=== PATIENT | female | born 1960 | race Caucasian/White ===

== ENCOUNTER → 2021-01-29 | Emergency (ER) | payer OTHER ==
[~2021-01-29] VITALS: Ht 162.6 cm; Wt 71.7 kg
== END | disposition home or self-care (01) ==
LOC: ER 17:03
DX: U07.1 COVID-19 (principal); R53.81 Other malaise

== ENCOUNTER 2021-02-08 11:46 | Emergency (ER) | payer OTHER ==
[~2021-02-08] VITALS: Ht 162.6 cm; Wt 73.5 kg
[2021-02-08] MEDS ORDERED: INTESTINEX680 M1 PO (17:32)
[2021-02-08] MEDS ORDERED: PEPCID AC20 MG PO (17:32)
[2021-02-08] MEDS ORDERED: LEVSIN/SL0.125 MG PO (17:32)
== END 2021-02-08 17:50 | disposition home or self-care (01) ==
LOC: ER 11:46
DX: R10.32 Left lower quadrant pain (principal); E86.0 Dehydration

== ENCOUNTER 2021-05-14 09:25 | Emergency (ER) | payer OTHER ==
[~2021-05-14] VITALS: Ht 152.4 cm; Wt 72.6 kg
[~2021-05-14 09:25] MED LIST: INTESTINEX680 M1 PO; LEVSIN/SL0.125 MG PO; PEPCID AC20 MG PO
[2021-05-14] MEDS ORDERED: MUCINEX DM ER1 EACH PO (12:59)
[2021-05-14] MEDS ORDERED: PREPARATION H R28 GM RECTAL (12:59)
[2021-06-05] MEDS ORDERED: ACETAMINOPHEN650 M2 (06:16)
== END 2021-05-14 13:11 | disposition home or self-care (01) ==
LOC: ER 09:25
DX: K64.9 Unspecified hemorrhoids (principal); J06.9 Acute upper respiratory infection, unspecified; Z03.818 Encounter for observation for suspected exposure to other biological agents ruled out

== ENCOUNTER 2021-05-28 08:00 | Outpatient (CLI) | payer OTHER ==
[~2021-05-28 08:00] MED LIST changes: +MUCINEX DM ER1 EACH PO; +PREPARATION H R28 GM RECTAL
[2021-06-05] MEDS ORDERED: ACETAMINOPHEN650 M2 (06:16)
== END 2021-05-28 08:30 | disposition home or self-care (01) ==
LOC: PPH VACUNA 08:00
DX: Z23 Encounter for immunization (principal)

== ENCOUNTER 2021-06-18 08:00 | Outpatient (CLI) | payer OTHER ==
[~2021-06-18 08:00] MED LIST changes: +ACETAMINOPHEN650 M2
== END 2021-06-18 08:30 | disposition home or self-care (01) ==
LOC: PPH VACUNA 08:00
PROVIDERS: ATTEND Emergency Medicine Pediatric Emergency Medicine
DX: Z23 Encounter for immunization (principal)

== ENCOUNTER 2021-08-07 11:02 | Emergency (ER) | payer OTHER ==
[~2021-08-07] VITALS: Ht 162.6 cm; Wt 74.4 kg
[2021-08-07] MEDS ORDERED: ZOCOR20 MG PO (11:14)
[2021-08-07] MEDS ORDERED: ZYRTEC10 MG PO (11:14)
[2021-08-07] MEDS ORDERED: CELEBREX100 MG PO (16:42)
[2021-08-07] MEDS ORDERED: LEVSIN/SL0.125 MG PO (16:42)
== END 2021-08-07 16:56 ==
LOC: ER 11:02
DX: R10.30 Lower abdominal pain, unspecified (principal)

== ENCOUNTER 2022-06-19 09:11 | Emergency (ER) | payer OTHER ==
[~2022-06-19] VITALS: Ht 162.6 cm; Wt 74.4 kg
[~2022-06-19 09:11] MED LIST changes: +CELEBREX100 MG PO; +ZOCOR20 MG PO; +ZYRTEC10 MG PO
== END 2022-06-19 13:32 | disposition home or self-care (01) ==
LOC: ER 09:11
DX: J03.90 Acute tonsillitis, unspecified (principal); Z88.8 Allergy status to other drugs, medicaments and biological substances

== ENCOUNTER 2022-08-28 11:35 | Emergency (ER) | payer OTHER ==
[~2022-08-28] VITALS: Ht 162.6 cm; Wt 73.5 kg
== END 2022-08-28 16:13 | disposition home or self-care (01) ==
LOC: ER 11:35
DX: R68.83 Chills (without fever) (principal)

== ENCOUNTER 2023-07-02 13:19 | Emergency (ER) | payer OTHER ==
[~2023-07-02] VITALS: Ht 152.4 cm; Wt 74.8 kg
[2023-07-02] MEDS ORDERED: [UNRECOGNIZED DRUG - OTHER] (14:34)
[2023-07-02 17:02] LABS: HEMATOCRIT 41.4 % (36.0-45.00); HEMOGLOBIN 14.2 g/dL (12.0-15.00); MEAN CELL VOLUME 95.3 fL (80.00-100.00); MEAN CORPUSCULAR HEMOGLOBIN 32.7 pg (27.00-32.0); MEAN CORPUSCULAR HGB CONC 34.4 g/dl (32.0-36.0); PLATELET COUNT 235 K/uL (150-450); RED BLOOD COUNT 4.35 M/uL (4.00-6.00); RED CELL DISTRIBUTION WIDTH 13.1 % (11.5-14.5)
[2023-07-02 17:26] LABS: PARTIAL THROMBOPLASTIN TIME 27.4 SECONDS (22.0-34.0)
[2023-07-02 17:33] LABS: BILIRUBIN TOTAL 0.2 mg/dL (0.3-1.2); CALCIUM 9.3 mg/dL (8.5-10.1); CREATININE SERUM 0.89 mg/dL (0.55-1.02); GFR 63.85; GLOBULINA 4.1 G/DL (2.4-3.5); POTASSIUM 3.43 mEq/L (3.5-5.1); TOTAL PROTEIN 8.1 gm/dL (6.4-8.2)
== END 2023-07-03 04:15 | disposition designated cancer center or children's hospital (05) ==
LOC: ER 13:19
PROVIDERS: General Practice
DX: T17.298A Other foreign object in pharynx causing other injury, initial encounter (principal); Y92.89 Other specified places as the place of occurrence of the external cause; Z20.822 Contact with and (suspected) exposure to COVID-19

== ENCOUNTER 2023-08-11 13:45 | Emergency (ER) | payer OTHER ==
[~2023-08-11] VITALS: Ht 162.6 cm; Wt 74.8 kg
[~2023-08-11 13:45] MED LIST changes: +[UNRECOGNIZED DRUG - OTHER]
[2023-08-11] MEDS ORDERED: LEVO-T25 MCG (14:18)
[2023-08-11] MEDS ORDERED: SIMVASTATIN5 MG PO (14:19)
[2023-08-11 15:33] LABS: HEMATOCRIT 43.6 % (36.0-45.00); HEMOGLOBIN 14.7 g/dL (12.0-15.00); MEAN CELL VOLUME 95.6 fL (80.00-100.00); MEAN CORPUSCULAR HEMOGLOBIN 32.2 pg (27.00-32.0); MEAN CORPUSCULAR HGB CONC 33.7 g/dl (32.0-36.0); PLATELET COUNT 217 K/uL (150-450); RED BLOOD COUNT 4.56 M/uL (4.00-6.00); RED CELL DISTRIBUTION WIDTH 13.3 % (11.5-14.5)
[2023-08-11 15:53] LABS: ALBUMIN 3.5 gm/dL (3.4-5.0); BILIRUBIN TOTAL 0.25 mg/dL (0.3-1.2); CALCIUM 8.9 mg/dL (8.5-10.1); CREATININE SERUM 0.95 mg/dL (0.55-1.02); GFR 59.22; GLOBULINA 4.5 G/DL (2.4-3.5); POTASSIUM 3.53 mEq/L (3.5-5.1)
[2023-08-11] MEDS ORDERED: OSEL75CA PO (16:33)
[2023-08-11] MEDS ORDERED: MUCINEX DM ER1 EACH PO (16:33)
[2023-08-11] MEDS ORDERED: ZYRTEC10 MG PO (16:33)
[2023-08-11] MEDS ORDERED: DEXAMETHASONE2 MG PO (16:35)
== END 2023-08-11 17:51 | disposition home or self-care (01) ==
LOC: ER 13:45
PROVIDERS: General Practice
DX: U07.1 COVID-19 (principal); J10.1 Influenza due to other identified influenza virus with other respiratory manifestations; Z20.822 Contact with and (suspected) exposure to COVID-19

== ENCOUNTER → 2025-06-26 09:06 | Outpatient (CLI) | payer OTHER ==
[~2025-06-26 09:06] MED LIST changes: +DEXAMETHASONE2 MG PO; +LEVO-T25 MCG; +OSEL75CA PO; +SIMVASTATIN5 MG PO
[2025-06-26 09:59] LABS: CREATININE SERUM 0.76 mg/dL (0.55-1.02)
== END | disposition home or self-care (01) ==
LOC: LAB 09:06
PROVIDERS: ATTEND Radiology Diagnostic Radiology
DX: H91.90 Unspecified hearing loss, unspecified ear (principal); H93.90 Unspecified disorder of ear, unspecified ear

== ENCOUNTER 2025-06-27 07:06 | Outpatient (CLI) | payer OTHER | END 2025-06-27 07:28 | disposition home or self-care (01) | LOC: MRI 07:06 | DX: H93.A9 Pulsatile tinnitus, unspecified ear (principal); H91.90 Unspecified hearing loss, unspecified ear | CPT/HCPCS: 70546; 70553 ==